=== PATIENT | female | born 1985 | race Hispanic/Latino ===

== ENCOUNTER 2016-07-21 22:27 | Emergency (ER) | payer OTHER ==
[~2016-07-21] VITALS: Ht 165.1 cm; Wt 78.6 kg
[~2016-07-21 22:27] MED LIST: LEDI1TAB PO; POLY17PO6 PO
[2016-07-21 22:29] VITALS: BP 122/71; PULSE 86; RESP 16; O2SAT 98
--- NOTE | 2016-07-21 23:56 | ED.REPORT ---
HPI-General Illness Date of Service Jul 21, 2016 ED Provider: Viktor Nava MD A 31 year old female with a history of cholelithiasis and hepatitis C presents to the ED complaining of abdominal pain that began approximately three hours ago and has been worsening since. This pain is most severe in the midline, but is present across her entire abdomen and radiates into her back. This is accompanied by nausea and vomiting. The pt believes that this is related to her gallbladder. She was diagnosed with two gallstones one month ago and has surgery scheduled for 08/02/2016, but did not feel that she could wait this long to be seen. The pt's last meal was a [employer] sandwich. Nursing Notes Stated Complaint: BACK PAIN Chief Complaint: Female Abdominal Pain Nursing Notes Reviewed: Yes Allergies: Coded Allergies: No Known Allergies (Verified , 04/19/14) Scheduled Ledipasvir/Sofosbuvir (Harvoni 90-400 mg Tablet) 1 Each Tablet 1 EACH PO DAILY Omeprazole (Omeprazole) 20 Mg Capsule.dr 20 MG PO BID Polyethylene Glycol 3350 (Miralax) 17 Gm Powd.pack 17 GM PO DAILY Scheduled PRN Ondansetron (Ondansetron) 8 Mg Tablet 8 MG PO QID PRN PRN For Nausea General Time Seen by MD: 23:32 Chief Complaint Abdominal pain Hx Obtained From: Patient Arrived By: Walk-in Sudden in Onset?: No Onset Occurred: 1 - 4 hours ago Symptom Duration: Since onset Recent Healthcare: No recent hospitalization, Recent doctor visit Similar Sx Previous: No Past Medical History Past Medical History hepatitis C gallstones kidney stones chronic back pain depression anxiety jaundice Past Surgical History ectopic stomach biopsy Smoking History Current Every Day Smoker Social History past history of heroin and methamphetamine abuse Alcohol Use: "Social" Ambulatory Status Independent Review of Systems Full Review of Systems Constitutional: Denies: Fever Respiratory: Denies: Non-productive cough, Shortness of breath GI: Reports: Abdominal pain, Nausea, Vomiting Musculoskeletal: Reports: Back pain, Denies: Neck pain Skin: Denies Rash Complete sys rev & neg: except as marked. Physical Exam Vital Signs Vital Signs Date Time Temp Pulse Resp B/P Pulse Ox O2 Delivery O2 Flow Rate FiO2 07/22/16 02:41 75 16 106/62 96 Room Air 07/21/16 22:29 36.3 86 16 122/71 98 Room Air Initial VS: Reviewed General/Constitutional: Awake, Alert, No acute distress Behavior: Positive: Tearful in obvious discomfort Head / Eyes: Atraumatic, Normocephalic, PERRL, EOMI ENT: Atraumatic, Airway patent, Mucous membranes moist Neck: Atraumatic, Supple, Full range of motion Respiratory / Chest: Atraumatic, Breath sounds NL, Breath sounds = bilat, No respiratory distress Cardiovascular: Heart rate NL, Regular rhythm, Heart sounds NL Abdomen: Atraumatic, Soft, Non-tender Back: Atraumatic, Full range of motion Upper Extremities Upper Extremity / MS: Atraumatic, Full range of motion Lower Extremity / Pelvis / MS: Atraumatic, Full range of motion Skin: Atraumatic, Color NL, No rash, Warm, Dry Neurologic: Oriented X3, Speech NL, No motor deficits, No sensory deficits Psychiatric: Affect NL, Mood NL Interpretation & Diagnostics Lab Results Interpretation Result Diagram: 07/22/16 0135 07/22/16 0135 Test 07/21/16 22:58 07/22/16 01:35 Urine Color Yellow (YELLOW) Urine Appearance Cloudy (CLEAR,HAZY) Urine pH 7.0 (5.0-8.0) Urine Specific [place] 1.020 (1.003-1.035) Urine Protein Negativemg/dL (NEG,TRACE) Urine Glucose (UA) Negativemg/dL (NEGATIVE) Urine Ketones Negativemg/dL (NEGATIVE) Urine Occult Blood Negative (NEGATIVE) Urine Nitrite Positive (NEGATIVE) Urine Bilirubin Negative (NEGATIVE) Urine Urobilinogen Normalmg/dL (NORMAL) Urine Leukocyte Esterase Trace (NEGATIVE) Urine RBC 0-2/hpf (0-2) Urine WBC 0-5/hpf (0-5) Urine Epithelial Cells Moderate/hpf (NONE-MOD) Urine Crystals Amorphous urates (NONE Urine Bacteria Moderate/hpf (NONE-FEW) Urine Hyaline Casts None/lpf (NONE) Urine Granular Casts None seen (NONE SEEN) Urine Waxy Casts None seen (NONE SEEN) Urine Red Blood Cell Casts None seen (NONE SEEN) Urine White Blood Cell Casts None seen (NONE SEEN) Urine Mucus None seen (None Seen) Urine Trichomonas None seen (NONE SEEN) Urine Yeast None (NONE SEEN) Urinalysis Comment None Urine Culture Reflexed Indicated Hold Urine Received (Received) White Blood Count 11.6th/mm3 (3.8-10.1) Red Blood Count 4.47mil/mm3 (3.90-5.20) Hemoglobin 13.3g/dL (12.0-15.6) Hematocrit 38.6% (35.0-46.0) Mean Corpuscular Volume 86.4fL (81-100) Mean Corpuscular Hemoglobin 29.8pg (27.0-35.0) Mean Corpuscular Hemoglobin Concent 34.5% (32.0-37.0) Red Cell Distribution Width 12.3% (12.3-15.4) Platelet Count 208bil/L (150-400) Neutrophils (%) (Auto) 55.2% (40-74) Lymphocytes (%) (Auto) 32.2% (14-46) Monocytes (%) (Auto) 8.4% (4-12) Eosinophils (%) (Auto) 3.6% (0-5) Basophils (%) (Auto) 0.3% (0-3) Prothrombin Time 10.0sec (8.1-12.5) Prothromb Time International Ratio 0.94ratio Sodium Level 142mEq/L (134-144) Potassium Level 4.3mEq/L (3.5-5.2) Chloride Level 109mEq/L (97-108) Carbon Dioxide Level 21mmol/L (18-29) Blood Urea Nitrogen 17mg/dL (6-20) Creatinine 0.52mg/dL (0.57-1.00) Estimat Glomerular Filtration Rate 200mL/min (>59) Glucose Level 113mg/dL (60-99) Calcium Level 8.2mg/dL (8.5-10.1) Magnesium Level 1.7mg/dL (1.6-2.6) Total Bilirubin 0.2mg/dL (0.0-1.2) Aspartate Amino Transf (AST/SGOT) 16U/L (0-50) Alanine Aminotransferase (ALT/SGPT) 17U/L (0-32) Alkaline Phosphatase 79U/L (25-150) Total Protein 6.4g/dL (6.4-8.4) Albumin 3.9g/dL (3.4-5.0) Lipase 42U/L (13-60) Hold Wilkins Top Tube Received (Received) Re-Eval/Medical Decision Med Decision/Clinical Course 31-year-old with known gallstones presents with right upper quadrant pain after eating [employer] sandwich. Pain is resolved at treatment here. LFTs are unremarkable and no evidence of acute biliary obstruction. Imaging deferred for the moment, she is now symptom-free. She needs a cholecystectomy apparently, she has had multiple episodes of colic. Discharged in stable condition for follow-up with surgery as previously arranged. Source of Hx: Old records Time of Eval: :29 Patient Status: Condition improved Re-Evaluation/Progress Note: Pt rechecked, who is resting comfortably. Diagnosis and the plan for discharge are discussed. The pt understands and agrees with the plan. All questions are addressed at this time. Counseled Regarding: Diagnosis, Lab results, Need for follow-up, When/why to return to ED Discharge & Departure Primary Impression: Biliary colic Disposition: Home Discharge Condition All VS Reviewed: Yes Condition: Stable Patient Instructions: Biliary Colic (ED), Low Fat Diet (ED) Additional Instructions: Take Prilosec twice daily. Stick to a low-fat diet. Zofran if needed for nausea. Vicodin if needed for pain. Follow-up with your doctor and schedule your gallbladder operation as soon as possible. Referrals: [facility] Bia Attestation Portions of this note were transcribed by Nahun Lott. I, Dr. Nava personally performed the history, physical exam and medical decision-making; I reviewed and confirmed the accuracy of the information in the transcribed note. Signed by: Bia Montes, 07/22/2016 and 0238. copies to: [facility] Viktor Nava MD Jul 21, 2016 23:56 NAHUN LOTT Jul 22, 2016 00:04
[2016-07-21] MEDS ORDERED: 0.9% Sodium Chloride 1,000 ML IV ONE (23:59)
[2016-07-22] MEDS ORDERED: Pantoprazole 4 mg/mL 10 mL Inj IVPUSH ONE
[2016-07-22] MEDS ORDERED: Ondansetron 2 mg/mL 2 mL Inj IVPUSH ONE
[2016-07-22 00:13] LABS: APPEARANCE,URINE CLOUDY (CLEAR,HAZY); COLOR,URINE YELLOW (YELLOW); OCCULT BLOOD,URINE NEGATIVE (NEGATIVE); UROBILINOGEN,URINE NORMAL (NORMAL)
[2016-07-22] MEDS: HYDROmorphone 1 mg/mL Inj IVPUSH PRN ×2 (00:18→00:48)
[2016-07-22 01:45] LABS: BASOPHILS % (AUTO) 0.3 % (0-3); EOSINOPHILS % (AUTO) 3.6 % (0-5); MONOCYTES % (AUTO) 8.4 % (4-12); Mean Corpuscular Hemoglobin 29.8 pg (27.0-35.0); Mean Corpuscular Volume 86.4 fL (81-100); NEUTROPHILS % (AUTO) 55.2 % (40-74); Platelet Count 208 bil/L (150-400)
[2016-07-22 02:12] LABS: INR 0.94 ratio
[2016-07-22 02:16] LABS: Magnesium 1.7 mg/dL (1.6-2.6)
[2016-07-22] MEDS ORDERED: _HYDROcodone/APAP 5-325 mg Tablet PO PRN (02:30)
[2016-07-22] MEDS ORDERED: ONDA-54 PO (02:33)
[2016-07-22] MEDS ORDERED: OMEP20CA11 PO (02:33)
[2016-07-22 02:41] VITALS: BP 106/62; PULSE 75; RESP 16; O2SAT 96
[2016-07-28] MEDS ORDERED: NPR500T PO (11:43)
== END 2016-07-22 02:56 | disposition home or self-care (01) ==
LOC: SED 22:27
DX: K80.50 Calculus of bile duct without cholangitis or cholecystitis without obstruction (principal); F17.200 Nicotine dependence, unspecified, uncomplicated
CPT/HCPCS: 36415; 80053; 81000; 83690; 83735; 85025; 85610; 87086; 87088; 96361; 96374; 96375; 99285; J1170; J1885; J2405; J7030

== ENCOUNTER 2016-08-02 11:42 | Day surgery (SDC) | payer OTHER ==
[2016-08-02] VITALS (14 sets, daily range): BP systolic 100–124; BP diastolic 32–86; PULSE 57–90; RESP 14–16; O2SAT 92–100
[~2016-08-02] VITALS: Ht 165.1 cm; Wt 82.0 kg
[~2016-08-02 11:42] MED LIST changes: +CeFAZolin Inj 2 GM in IV Premix 1 EACH IV ONE; +CeFAZolin Inj 2 GM in IV Premix 1 EACH IV SCH; -LEDI1TAB PO; +Lactated Ringer's 1,000 ML IV SCH; +NPR500T PO
[2016-08-02] MEDS ORDERED: Neostigmine 1 mg/mL 10 mL Inj ONE (11:43)
[2016-08-02] MEDS ORDERED: Rocuronium 10 mg/mL 5 mL Inj ONE (11:43)
[2016-08-02] MEDS ORDERED: fentaNYL-PF 50 mCg/mL 2 mL Inj ONE (11:43)
[2016-08-02] MEDS ORDERED: MetoCLOpramide 5 mg/mL 2 mL Inj ONE (11:43)
[2016-08-02] MEDS ORDERED: Dexamethasone 4 mg/mL Inj ONE (11:43)
[2016-08-02] MEDS ORDERED: EPHEDrine/NS 5 mg/mL 5 mL Syringe ONE (11:43)
[2016-08-02] MEDS ORDERED: Propofol 10,000 mCg/mL 20 mL Inj ONE (11:43)
[2016-08-02] MEDS ORDERED: Glycopyrrolate 0.2 MG/ML 1mL Inj ONE (11:43)
[2016-08-02] MEDS ORDERED: CeFAZolin Inj 2 gm / 50mL D5W IV ONE (11:51)
[2016-08-02] MEDS ORDERED: Lactated Ringer's 1,000 ML IV ONE ×2 (12:05→17:21)
--- NOTE | 2016-08-02 13:36 | PCM.HPANE ---
Patient Data Surgeon Admitting Provider: Attending Provider:Debbi López MD Primary Care Physician:Yoly Other Provider:Precious Shaikh Anesthesia Reason for Visit Biliary Colic Ht/WT & BMI Height (Feet): 5 Height (Inches): 5 Weight (Kilograms): 82 Body Mass Index 30.00 Allergies Coded Allergies: No Known Allergies (Verified , 08/02/16) Past Anesthesia History Anesthesia History: Denies:: Abnormal Airway, Anesthesia Reactions, Difficult Intubation, Fam Anesthesia Reaction, Fam Malignant Hypertherm, Malignant Hyperthermia Diabetes History Hx Diabetes?: No MRSA MRSA: No Medications Hypertension Medication: No Home Meds Incl Beta Reinaldo: No Reported Medications Polyethylene Glycol 3350 (Miralax)17 Gm Powd.pack17 Gm PO DAILY 07/12/16 Discontinued Reported Medications Naproxen 500 Mg Tkg302 Mg PO BID PRN For Pain Ref 0 07/28/16 Ledipasvir/Sofosbuvir (Harvoni 90-400 mg Tablet)1 Each Tablet1 Each PO DAILY 07/12/16 Discontinued Scripts Ondansetron 8 Mg Tablet8 Mg PO QID PRN For Nausea #20 TABLET Prov:Viktor Nava MD 07/22/16 Omeprazole 20 Mg Capsule.dr20 Mg PO BID #60 CAPSULE Ref 0 Prov:Viktor Nava MD 07/22/16 History History of ENT Problems?: No HEENT History: Denies:: Abnormal Airway Difficult Intubation Dysphagia Hearing Problem Sinus Problem TMJ Hx of Heart Problems?: No Cardiovascular History: Positive for:: Rheumatic Fever (hospitalized when teenager) Denies:: AICD Atrial Fibrillation Chest Pain Congestive Heart Failure Hypertension Pacemaker Valvular Heart Disease Other Cardiac History: C/OF BRUISING EASILY Hx of Respiratory Problem?: Yes Respiratory History: Positive for:: Cough (r/t smoking?) Denies:: Asthma COPD Emphysema Hemoptysis Oxygen Administration Pneumonia (unsure of) Tuberculosis Use of C-PAP Machine Use of Inhalers / NEBS Hx Neurologic Problems?: Yes Neurological History: Positive for:: Headaches (for last three years / takes excedrin) Denies:: CVA Multiple Sclerosis Parkinson's Disease Seizures TIA Hx of GI Problems?: Yes Gastrointestinal History: Positive for:: Gall Bladder Disease (BILIARY COLIC= CURRENT PROBLEM) Gastroesphageal Reflux Hepatitis (Hep C - last dose due 07/20/16) Denies:: Cirrhosis Diverticulitis Gastrointestinal Bleeding Hiatal Hernia Rectal Bleeding Other GI Pertinent History: C/OF UNINTENTIONAL WEIGHT LOSS Hx of Problems?: No Genitourinary History: Positive for:: Kidney Stones (passed spontaneously past hx of) Denies:: HX of Hemodialysis Urinary Tract Infection HX of Peritoneal Dialysis: No Female Hx: Denies:: Currently Endometriosis Pelvic Inflammatory Problems with Breasts? Skin History: Denies:: History Skin Disorders? Pressure Ulcers Hx Musculoskeletal Problems?: Yes Musculoskeletal History: Positive for:: Back Injury (chronic back pain, scoliosis "not major") Denies:: Fibromyalgia Joint Replacement Osteoarthritis Rheumatoid Arthritis Hx of Psycho/Social Problems?: Yes Psycho Social History: Positive for:: Anxiety (past hx) Hx Depression (past hx ) Denies:: Bipolar Disorder Suicide Attempt Hx Surgeries?: Yes (ectopic , stomach biopsy) Hx Any Other Health Problems?: Yes Other History: Denies:: Cancer (pre cervical ) Endocrine Disease Hospitalization Thyroid Disease History Blood Transfusions: Positive for:: Accept Blood Products? Denies:: Blood Transfuse Reaction Blood Transfusions Hx Diabetes: No Hx Alcohol Use: NoHx Substance Use: No (remote hx of- last use heroin , methamphetamine 2012) Smoking Status: Current Every Day Smoker Have You Smoked inLast 12 mo: YesApprox How Many Cigarettes/day: 15 C/DAY X 3YRS Stop/Bang S-Snoring: Do You Snore Loudly: No T-Tired: feel tired, fatigued: No O-Obsered: Observed not breath: No P-Blood Pressure: treated: No B- Body Mass Index > 35 kg/m2: No A- Age over 50: No N- Neck Large Circumference: No G- Gender Male: No DOMINIQUE Total Score: 0 DOMINIQUE Risk Assessment: Low Risk, <3 Yes Risk Assessment Category Category 1A: Patient has history of documented sleep apnea, and HAS NOT received any narcotic, sedative or anesthesia administration during this stay. Category 1B: Patient has history of documented sleep apnea, and HAS received any narcotic , sedative or anesthesia administration during this stay Category 2: Patient has SUSPECTED Obstructive Sleep Apnea, and HAS received any narcotic , sedative or anesthesia administration during this stay. Category 3: Patient has SUSPECTED Obstructive Sleep Apnea and HAS NOT received narcotic, sedative or anesthesia administration during this stay. Category 4: Outpatient in Procedural Areas with known sleep apnea or who screen positive for High Risk via the STOP/BANG questionnaire. Exam Exam Vital Signs Vital Signs Date Time Temp Pulse Resp B/P Pulse Ox O2 Delivery O2 Flow Rate FiO2 08/02/16 12:05 36.3 90 16 105/58 97 Room Air General Appearance: Oriented X3 HEENT/AIRWAY: MP 2 Lungs: Normal Air Movement Heart: Regular Rate/Rhythm Meds/Labs/Diagnostics Admission Meds Current Medications Gabapentin (Neurontin) 600 mg PREOP ONCE PO Last administered on 08/02/16 12: 05; Start 08/02/16 at 06:00; Stop 08/02/16 at 06:01; Status DC Celecoxib (CeleBREX) 200 mg PREOP ONCE PO Last administered on 08/02/16 12:05 ; Start 08/02/16 at 06:00; Stop 08/02/16 at 06:01; Status DC Scopolamine (Transderm-Scop Patch) 1.5 mg ONCE ONCE TOPICAL Last administered on 08/02/16 12:05; Start 08/02/16 at 05:00; Stop 08/02/16 at 05:01; Status DC Acetaminophen 650 mg 650 mg PREOP ONCE PO Last administered on 08/02/16 12:05 ; Start 08/02/16 at 06:00; Stop 08/02/16 at 06:01; Status DC Lactated Ringer's (Lr) 1,000 ml @ ud STK-MED ONCE IV Last administered on 08/02 12:05; Start 08/02/16 at 12:05; Stop 08/02/16 at 12:15; Status DC Plan Impression Patient chart reviewed, patient interviewed and anesthestic plan with risks, benefits, and alternatives discussed, and informed consent obtained. NPO Status: 06 ASA Physical Status: ASA2 Mod Systemic Disease Anesthetic Plan: GA Bene/Risks/Altern/Consents: Yes HP Complete Prior to Induction: Yes Jose G Deras MD Aug 02, 2016 13:36
[2016-08-02] MEDS ORDERED: Bupivacaine-MPF 0.5% W/EPI 30 mL Inj INFILTRATE ONE (14:12)
[2016-08-02] MEDS ORDERED: oxyCODONE-Acetamin 5-325 mg Tablet PO PRN (15:35)
--- NOTE | 2016-08-02 15:38 | PCM.ANEP2 ---
Post Anesthesia Evaluation ASA/CMS Post Anesthesia VS in Patient's Normal Range?: Yes Resp Stable; Airway Patent?: Yes CV Function & Hydration Stable: Yes Mental Status Recovered?: Yes Pain control Satisfactory?: Yes N/V Control Satisfactory?: Yes Jose G Deras MD Aug 02, 2016 15:38
--- NOTE | 2016-08-02 15:38 | PCM.ANEP1 ---
Post Anesthesia Phase 1 PACU Phase 1 Assessment Vital Signs Vital Signs Date Time Temp Pulse Resp B/P Pulse Ox O2 Delivery O2 Flow Rate FiO2 08/02/16 15:33 36.0 71 14 112/55 99 Simple Mask 8 08/02/16 12:05 36.3 90 16 105/58 97 Room Air Anesthetic Administered: GA Level of Alertness: Awake, talking Pain: No Nausea or Vomiting: No Airway Device: Oralpharangeal Airway Oxygen Delivery: Room Air Lungs: Normal Air Movement Jose G Deras MD Aug 02, 2016 15:38
--- NOTE | 2016-08-02 15:40 | DRSVH ---
PROCEDURE: X-RAY OPERATIVE CHOLANGIOGRAM ([id number]) INDICATIONS: BILIARY COLIC COMPARISON: [facility] Ultrasound, US, US ABDOMEN, 06/19/2016, 8:42. FINDINGS: Biliary ducts: The surgeon injected contrast into the biliary ducts after cannulation of the cystic duct stump. Visualized intra- and extrahepatic bile ducts are normal in caliber, without strictures. No intraluminal filling defects to suggest retained ductal stones or sludge. No evidence for iatro genic ductal injury. Duodenum: Contrast flows promptly through the sphincter of Oddi into the duodenum, which appears nor mal in caliber. IMPRESSION: Normal exam. Dictated by: Valentin Calderon [facility] Interpreted: Coni Maki MD on 08/02/2016 at 15:30 Transcribed by: ALESHA on 08/02/2016 at 15:31 Approved by: Coni Maki M.D. on 08/02/2016 at 17:35
--- NOTE | 2016-08-02 15:40 | PCM.SURGOP ---
Surgical Operative Report Date of Service: Aug 02, 2016 Pre Operative Diagnosis Biliary colic Post Operative Diagnosis Chronic cholecystitis Procedure: Laparoscopic cholecystectomy with intraoperative cholangiogram, with interpretation Surgeon and Foam Tank Laminator: Surgeon: Debbi López M.D. Assistants: Hugo Yanez PA-C; Laura Bradley, MS3 Surgical assistants were necessary for dissection, retraction, and surgical decision making. Indication for Procedure This is a 31-year-old woman with a history of hepatitis see treated with carvedilol only who presented with postprandial right upper quadrant pain and cholelithiasis noted on abdominal ultrasound. She was diagnosed with biliary colic and was consented for laparoscopic cholecystectomy. Findings: 1. Moderately inflamed gallbladder with overlying adhesions. 2. Normal intraoperative cholangiogram with a long cystic duct, no filling defects, and adequate visualization of the right and left hepatic ducts, common hepatic duct, common bile duct, with good filling of the duodenum. Procedure Details The patient was brought to the operating room and placed in supine position. General endotracheal anesthesia was smoothly induced. A warming blanket and SCDs were placed. A foot board was placed. The operative field was prepped and draped in sterile fashion. A pause was performed to confirm the correct patient, procedure, site, and side. A transverse 10 mm incision was made just below the umbilicus. The abdomen was entered under direct vision using a Logan port. Three additional 5 mm ports were placed in the epigastrium and right upper quadrant. The gallbladder was identified and lifted cephalad. There were moderate adhesions due to cholecystitis, and substantial pericholecystic edema. The duodenum was gently dissected off of the gallbladder. Dissection then proceeded to identify the cystic duct, cystic artery, and to expose the lower one third of the cystic plate. Once there were two and only two structures entering the gallbladder, a clip was placed on the gallbladder side of the cystic duct. A ductotomy was made and a cholangiocatheter was inserted. A cholangiogram was performed and the cystic duct was long and patent with normal filling of the common hepatic duct, common bile duct, and right and left hepatic ducts, as noted above. The cholangiocatheter was then removed, two clips were placed on the cystic duct and it was divided. The cystic artery was clipped on both the gallbladder side and the patient's side and divided. The gallbladder was then removed from its bed on the liver with electrocautery. Prior to completely removing the gallbladder, a final look was taken at the stump of the cystic artery and cystic duct, and there was no bleeding or bile leak. The gallbladder was then fully removed from the liver and placed in an EndoCatch bag and removed. The three 5 mm ports were removed under direct vision, the 10 mm mid abdominal port was removed, and a [id number] PDS was used to close the fascia. There was no fascial defect at the end of the case. 0.5% Marcaine with epinephrine was infused at all port sites for postoperative analgesia. The skin was closed with subcuticular 4-0 Monocryl. Sterile dressings were placed. Sponge, instrument, and needle counts were correct at the end of the procedure. The patient was awakened from general anesthesia and taken to the postoperative care unit in good condition. Complications There were no periprocedural complications identified. Surgical Specimen Removed: Yes Specimen sent to Pathology: Yes Surgical Specimen description: Gallbladder Anesthetic Plan: GA Grafts, Implants: None Output, Estimated Blood Loss: 2 (ml) Blood Administration during celaya: No Debbi López MD Aug 02, 2016 15:40
[2016-08-02] MEDS ORDERED: Lactated Ringer's 500 ML IV PRN ×2 (15:53→15:54)
[2016-08-02] MEDS ORDERED: Lactated Ringer's 1,000 ML IV SCH ×2 (15:53→15:54)
[2016-08-02] MEDS ORDERED: Dexamethasone 4 mg/mL Inj IVPUSH PRN ×2 (15:55)
[2016-08-02] MEDS ORDERED: fentaNYL-PF 50 mCg/mL 2 mL Inj IVPUSH PRN (15:55)
[2016-08-02] MEDS ORDERED: Phenylephrine 10,000 mCg/mL Inj IVPUSH PRN ×2 (15:55)
[2016-08-02] MEDS ORDERED: EPHEDrine Sulfate 50 mg/mL Inj IVPUSH PRN ×2 (15:55)
[2016-08-02] MEDS ORDERED: Ondansetron 2 mg/mL 2 mL Inj IVPUSH PRN ×2 (15:55)
[2016-08-02] MEDS ORDERED: MetoCLOpramide 5 mg/mL 2 mL Inj IVPUSH PRN ×2 (15:55)
[2016-08-02] MEDS ORDERED: HYDROmorphone 1 mg/mL Inj IVPUSH PRN (15:55)
[2016-08-02] MEDS: fentaNYL-PF 50 mCg/mL 2 mL Inj IVPUSH PRN ×2 (16:00→16:17)
[2016-08-02] MEDS: HYDROmorphone 1 mg/mL Inj IVPUSH PRN ×2 (16:00→16:17)
--- NOTE | 2016-08-04 15:33 | PATH ---
SURGICAL PATHOLOGY Attending Physician:Debbi López MD CASE STATUS: Signed Out PATIENT NAME: JEANIE BRO PID: [id number] : 1985 DATE COLLECTED:08/02/2016 00:00 SPECIMEN: Gallbladder CLINICAL HISTORY: BILIARY COLIC 1). GALLBLADDER FINAL DIAGNOSIS: Gallbladder: Cholesterolosis and cholelithiasis. No evidence of malignancy. ICD10 K80.7; K82.4 GROSS DESCRIPTION: The specimen is received in one formalin filled container labeled with the patient's name, sublabeled "gallbladder" and consists of an opened 7.0 x 2.5 x 1.5 CM. The serosa is smooth. The wall is 0.2-0.4 CM in thickness. The mucosa is a light green pena in color. The lumen contains to green rough cobblestone calculi which range in size from 0.5-0.7 CM. 5 life assurance representative sections are submitted in one cassette. 08/03/2016 DAC MICRO DESCRIPTION: Please see diagnosis ICD-9 CODES: CPT CODES: 1: 32986 Electronically Signed Out Nihsa Friend MD [facility] Pathology [facility] [address], [place] [address] Technical component performed at [facility], [address] [place] [address] Ave[address], [place], [address]
== END 2016-08-02 23:59 | disposition home or self-care (01) ==
LOC: SAS 11:42
PROVIDERS: ATTEND Surgery
DX: K80.10 Calculus of gallbladder with chronic cholecystitis without obstruction (principal); R10.9 Unspecified abdominal pain; B18.2 Chronic viral hepatitis C; F17.210 Nicotine dependence, cigarettes, uncomplicated; F41.9 Anxiety disorder, unspecified; F32.9 Major depressive disorder, single episode, unspecified; K21.9 Gastro-esophageal reflux disease without esophagitis; Z87.898 Personal history of other specified conditions; Z87.442 Personal history of urinary calculi
CPT/HCPCS: 47563; 74300; 88304; J0690; J1100; J1170; J2250; J2270; J2710; J2765; J3010; J7120; Q9967

== ENCOUNTER 2016-08-03 19:06 | Observation (INO) | payer OTHER ==
[~2016-08-03] VITALS: Ht 165.1 cm; Wt 80.0 kg
[2016-08-03 11:30] VITALS: BP 106/76; PULSE 58; RESP 18; O2SAT 98
[~2016-08-03 19:06] MED LIST changes: -CeFAZolin Inj 2 GM in IV Premix 1 EACH IV ONE; -CeFAZolin Inj 2 GM in IV Premix 1 EACH IV SCH; -Lactated Ringer's 1,000 ML IV SCH; -NPR500T PO
[2016-08-03 19:13] VITALS: BP 111/69; PULSE 69; RESP 18; O2SAT 98
[2016-08-03] MEDS ORDERED: 0.9% Sodium Chloride 1,000 ML IV ONE (19:34)
[2016-08-03] MEDS ORDERED: HYDROmorphone 0.5 mg/0.5 mL iSecure Syringe IVPUSH PRN ×2 (19:35→22:40)
[2016-08-03] MEDS ORDERED: Ondansetron 2 mg/mL 2 mL Inj IVPUSH PRN ×2 (19:35→22:40)
[2016-08-03 19:50] LABS: BASOPHILS % (AUTO) 0.1 % (0-3); EOSINOPHILS % (AUTO) 0.2 % (0-5); MONOCYTES % (AUTO) 8.9 % (4-12); Mean Corpuscular Hemoglobin 29.7 pg (27.0-35.0); Mean Corpuscular Volume 85.4 fL (81-100); Platelet Count 232 bil/L (150-400)
--- NOTE | 2016-08-03 20:03 | ED.REPORT ---
HPI-Abd Pain F Under 40 Date of Service Aug 03, 2016 ED Provider: Marcos Brannon MD A 31 year old female with a history of hepatitis C, chronic back pain and kidney stones presents to the ED complaining of abdominal pain that began at 0300 this morning. Patient was recently diagnosed with biliary colic on 07/21 and had a successful laparoscopic cholecystectomy performed by Dr. López on . Patient began to express concern when the pain did not subside. She took 5mg of Oxycodone at 1845 this evening with no relief. Patient was unable to sleep because of the pain. Associated symptoms include nausea, vomiting and SOB. She is currently on her menstrual cycle but also reports abnormal bleeding. She denies fever or dysuria. Patient denies BM since the surgery. Nursing Notes Stated Complaint: POST SURGERY ABD PAIN/WHEEZING Chief Complaint: Female Abdominal Pain Nursing Notes Reviewed: Yes Allergies: Coded Allergies: No Known Allergies (Verified , 08/02/16) Scheduled Polyethylene Glycol 3350 (Miralax) 17 Gm Powd.pack 17 GM PO DAILY General Time Seen by MD: 19:27 Chief Complaint Abdominal pain Hx Obtained From: Patient Arrived By: Walk-in Sudden in Onset?: Yes Onset Occurred: 13 - 16 hours ago Symptom Duration: Since onset Progression since Onset: Unchanged Location: : RUQ Quality: Painful Radiation: : Does not radiate Severity: Current: Mild Severity: Maximum: Moderate Associated with: Reports: Nausea, Shortness of breath, Vaginal bleeding, Vomiting, Denies: Dysuria, Fever Pertinent Negative: Pt denies other symptoms Status: Last NL menst cycle (Current) Recent Healthcare: Recent doctor visit, Recent hospitalization Past Medical History Past Medical History Notes: PCP: Butch Zimmer Past Medical History Hepatitis C Gallstones Kidney stones Chronic back pain Depression Anxiety Past Surgical History Ectopic Stomach biopsy Smoking History Current Every Day Smoker Social History Past history of heroin and methamphetamine abuse Alcohol Use: "Social" Drug Use: Meth Other Social History: Good social support, Local resident Ambulatory Status Independent Review of Systems Constitutional: Denies: Chills, Fever Respiratory: Reports: Shortness of breath Cardiovascular: Denies: Chest pain GI: Reports: Abdominal pain, Constipation, Nausea, Vomiting Female: Reports: Vaginal bleeding - abnl, Denies: Dysuria Complete sys rev & neg: except as marked. Neurologic: Denies: Change LOC Physical Exam Initial Vital Signs Vital Signs (First) Date Time Temp Pulse Resp B/P Pulse Ox O2 Delivery O2 Flow Rate FiO2 08/03/16 19:13 36.6 69 18 111/69 98 Room Air Initial VS: Reviewed Head / Eyes: Atraumatic, Normocephalic, PERRL Extremities: Vascular intact, Neuro intact, No swelling, No tenderness Skin: Warm, Dry, No cyanosis Neurologic: Alert, Oriented, Nonfocal Psychiatric: Mood/affect normal, Behavior normal, Normal thought content General/Constitutional: Awake, Alert Respiratory / Chest: Atraumatic, Breath sounds NL, Breath sounds = bilat, No respiratory distress Cardiovascular: Heart rate NL, Regular rhythm, Heart sounds NL, No gallop, No murmurs, No rubs Abdomen: Atraumatic, Soft Tenderness/Guarding/Rebound: Positive: Guarding voluntary, Rebound diffuse, Tender RUQ..., Tender periumbilical Bowel Sounds / Distention: Positive: Bowel sounds absent Back: Atraumatic, Inspection NL Interpretation & Diagnostics Lab Results Interpretation Result Diagram: 08/03/16194408/03/161944 Test 08/03/16 19:45 White Blood Count 14.3th/mm3 (3.8-10.1) Red Blood Count 4.51mil/mm3 (3.90-5.20) Hemoglobin 13.4g/dL (12.0-15.6) Hematocrit 38.5% (35.0-46.0) Mean Corpuscular Volume 85.4fL (81-100) Mean Corpuscular Hemoglobin 29.7pg (27.0-35.0) Mean Corpuscular Hemoglobin Concent 34.8% (32.0-37.0) Red Cell Distribution Width 12.7% (12.3-15.4) Platelet Count 232bil/L (150-400) Neutrophils (%) (Auto) 63.0% (40-74) Lymphocytes (%) (Auto) 27.6% (14-46) Monocytes (%) (Auto) 8.9% (4-12) Eosinophils (%) (Auto) 0.2% (0-5) Basophils (%) (Auto) 0.1% (0-3) Sodium Level 140mEq/L (134-144) Potassium Level 3.5mEq/L (3.5-5.2) Chloride Level 102mEq/L (97-108) Carbon Dioxide Level 23mmol/L (18-29) Blood Urea Nitrogen 9mg/dL (6-20) Creatinine 0.57mg/dL (0.57-1.00) Estimat Glomerular Filtration Rate 180mL/min (>59) Glucose Level 97mg/dL (60-99) Calcium Level 9.3mg/dL (8.5-10.1) Magnesium Level 1.8mg/dL (1.6-2.6) Total Bilirubin 0.5mg/dL (0.0-1.2) Aspartate Amino Transf (AST/SGOT) 35U/L (0-50) Alanine Aminotransferase (ALT/SGPT) 39U/L (0-32) Alkaline Phosphatase 83U/L (25-150) Total Protein 7.7g/dL (6.4-8.4) Albumin 4.3g/dL (3.4-5.0) Lipase 15U/L (13-60) Human Chorionic Gonadotropin, Qual Negative (Negative) Hold Wilkins Top Tube Received (Received) Point of Care Testing: Preg test neg - urine X-Ray Chest Interpretation Chest Xray Interpretation: IMPRESSION: No acute process. Dictated by: Shahbaz Flores M.D. on 08/03/2016 at 21:26 Interpretation / Wet Read by: Interpret - Radiologist CT Abd / Pelvis Interpretation IMPRESSION: 1. Postsurgical sequelae. 2. Mildly thickened and distended fluid-filled small bowel loops within the left hemiabdomen, consistent with gastroenteritis in the appropriate clinical setting. 3. Normal appendix. Dictated by: Shahbaz Folres M.D. on 08/03/2016 at 21:27 Study type: Abdominal CT IV contrast, Abdom CT oral contrast Interpretation / Wet Read by: Interpret - Radiologist Re-Eval/Medical Decision Med Decision/Clinical Course Med Decision/Clinical Course: 31-year-old female status post cholecystectomy yesterday. This was a laparoscopic procedure. Presents today with abdominal pain, she had mild leukocytosis a reassuring imaging. Also had respiratory complaints but no infiltrate on chest x-ray. Was given IV fluids, nausea and pain medication here in the emergency department with continued symptoms. She is admitted to the surgical service, Dr. Santiago will see her later. Re-Evaluation/Progress : Time of Eval: 21:55 Patient Status: Condition improved Re-Evaluation/Progress Note: Patient is rechecked. She is informed of her lab results, CT results and the plan to admit for observation. She agrees to meet with the surgeon in the morning. Consultation #1: Referral / Consult Name: Jose Santiago MD Consulted With: Surgeon Call Returned at: 21:53 Wig Maker: Agrees with eval, Agrees with plan Note: Will consult Consultation #2: Referral / Consult Name: Shani Mathew DO Consulted With: Hospitalist Call Returned at: 22:01 Wig Maker: Will see patient, Agrees with eval, Agrees with plan, Accepts admit Counseled Regarding: Diagnosis, Lab results, Need for admission Discharge & Departure Primary Impression: Postoperative abdominal pain Additional Impression: Ileus Disposition: ADMITTED TO HOSPITAL Discharge Condition All VS Reviewed: Yes Condition: Improved Referrals: BUTCH SHELTON (PCP) Melanieibashley Attestation Portions of this note were transcribed by Chandrakant Ledesma. I, Dr. Brannon personally performed the history, physical exam and medical decision-making; I reviewed and confirmed the accuracy of the information in the transcribed note. Signed by: Bia Hernandez, 08/03/16 [id number]. copies to: BUTCH SHELTON Donald L MD Aug 03, 2016 20:03 CHANDRAKANT LEDESMA Aug 03, 2016 20:10
[2016-08-03 20:12] LABS: Magnesium 1.8 mg/dL (1.6-2.6)
[2016-08-03] MEDS ORDERED: Ketorolac 15 mg/mL Inj IVPUSH ONE (20:30)
--- NOTE | 2016-08-03 21:28 | DRSVH ---
PROCEDURE: X-RAY CHEST ONE VIEW, PORTABLE ([id number]) INDICATIONS: cough TECHNIQUE: One view of the chest was acquired. COMPARISON: [facility], , CHEST 1VW (PORTABLE), 02/10/2011, 16:16. FINDINGS: Surgical changes and devices: None. Lungs and pleura: No pleural effusions or pneumothorax. Lungs are clear. Mediastinum: Mediastinal contours appear normal. Heart size is normal. Bones and chest wall: No suspicious bony lesions. Overlying soft tissues appear unremarkable. IMPRESSION: No acute process. Dictated by: Shahbaz Flores M.D. on 08/03/2016 at 21:26 Approved by: Shahbaz Flores M.D. on 08/03/2016 at 21:26
--- NOTE | 2016-08-03 21:31 | DRSVH ---
PROCEDURE: CT ABDOMEN AND PELVIS WITH CONTRAST ([id number]) INDICATIONS: abd pain post rosalva yesterday TECHNIQUE: After the administration of oral and intravenous contrast, 5 mm thick sections acquired from the diap hragms to the symphysis. 5 mm thick coronal and sagittal reformats were performed. For radiation do se reduction, the following was used: automated exposure control, adjustment of mA and/or kV accordi ng to patient size. COMPARISON: [facility], CT, ABD/PELVIS W/CON (PN), 09/07/2013, 19:38. FINDINGS: Image quality: Excellent. ABDOMEN: Lung bases: Lung bases are clear. Heart size is normal. Solid organs: Liver and spleen are normal in size and enhancement. Gallbladder is surgically absent . There is a small amount of fat stranding within the gallbladder fossa, compatible with postsurgical sequelae. Biliary system is non-dilated. Pancreas enhances normally. No adrenal nodules. Kidneys are normal in size and enhancement, without hydronephrosis. Peritoneum and bowel: Stomach is within normal limits. There are mildly thickened and distended flui d-filled small bowel loops within the left hemiabdomen. Appendix is normal. Colon is within normal li mits. No free fluid. There is a small amount of pneumoperitoneum, compatible with postsurgical sequel ae. Normal appendix. Nodes and vessels: No retroperitoneal or mesenteric adenopathy. Aorta and inferior vena cava are no rmal in caliber. Miscellaneous: No ventral hernias. PELVIS: Genitourinary: Bladder wall thickness is normal. Miscellaneous: No inguinal hernias or adenopathy. Bones: No suspicious bony lesions. No vertebral body compression fractures. IMPRESSION: 1. Postsurgical sequelae. 2. Mildly thickened and distended fluid-filled small bowel loops within the left hemiabdomen, consist ent with gastroenteritis in the appropriate clinical setting. 3. Normal appendix. Dictated by: Shahbaz Flores M.D. on 08/03/2016 at 21:27 Approved by: Shahbaz Flores M.D. on 08/03/2016 at 21:29
[2016-08-03] MEDS ORDERED: HYDROmorphone PCA 0.2 mg/mL 30 mL Inj IV PRN (22:40)
[2016-08-03 23:30] VITALS: BP 106/76; PULSE 58; RESP 17; O2SAT 98
[2016-08-03 23:44] VITALS: BP 112/64; PULSE 84; RESP 16; O2SAT 98
[2016-08-03] MEDS: Lactated Ringer's 1,000 ML IV SCH (23:48)
[2016-08-03 23:53] VITALS: RESP 17; O2SAT 98
--- NOTE | 2016-08-03 23:59 | HP ---
[address] [address] HISTORY AND PHYSICAL PATIENT: JEANIE BRO : 1985 MR#: [id number] ADMIT: 08/03/2016 JOB ID: [id number] DATE: 08/03/2016 CHIEF COMPLAINT: The patient is a 31-year-old female with postop abdominal pain. HISTORY OF PRESENT ILLNESS: The patient underwent a laparoscopic cholecystectomy as an outpatient on August [address] Debbi López. Operative note reports findings some moderately inflamed gallbladder with overlying adhesions and a normal intraoperative cholangiogram with a long cystic duct. No complications were described. The patient tells me that she is having progressively increasing abdominal pain, unrelieved by taking her oral pain medications. She also expresses concern of unusually heavy menstrual bleeding. After discussion over the phone, she was offered a visit to the emergency department where she has been seen by the emergency department physician. Once again, her primary complaint is of pain unrelieved by her oral pain medications. PAST MEDICAL HISTORY: History of hepatitis C, history of chronic back pain, previous kidney stones. MEDICATIONS: 1. Oxycodone. 2. MiraLAX. ALLERGIES: None. SOCIAL HISTORY: The patient is seen with her . Smokes cigarettes. Does not drink alcohol on a daily basis. Distant history of drug use. REVIEW OF SYSTEMS: Negative. PHYSICAL EXAMINATION: The patient is seen in the emergency department. She has received intravenous pain medicine. Her temperature is 36.6, her pulse is 69, her blood pressure is 111/69, per charting. She appears quite uncomfortable with her knees drawn up. Her sclerae are clear. Lungs are clear. Heart sounds are regular. Her incisions are without excessive bleeding or bruising. Palpating her abdomen away from the incisions, she is fairly tender in the right upper quadrant. She has some percussion tenderness and will not cough with my hand on her abdomen. LABORATORY DATA: Her white count is 14.3, compared to 11.6 when she was in the ED previously with biliary colic. Her hematocrit is stable at 38.5. Chemistries are normal. LFTs are normal except for mild elevation of her ALT at 39 and lipase is 15. IMAGING: She has had a CT scan of the abdomen. I have reviewed both the films and the report. There are findings consistent with normal postop appearance, no large fluid collection, no unexpected amount of pneumoperitoneum. IMPRESSION/PLAN: Post laparoscopic cholecystectomy pain, unclear etiology. As she is afebrile with an elevated white count that is consistent with stress, at this point, I would just admit her tonight for pain control. I will ask Dr. López to see her in the morning. I have explained to the patient that we will repeat her labs in the morning and if they look normal, she will likely be discharged. If she is to be discharged tomorrow, she is hoping to be discharged early as she has do shopping for a birthday constitution party for her mother and her nephew. 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
[2016-08-04 00:08] VITALS: RESP 18; O2SAT 96
[2016-08-04 00:20] VITALS: RESP 17; O2SAT 96
--- NOTE | 2016-08-04 04:47 | NUR ---
[place] [facility] [place]ceived phone report from ED at 2315, pt arrived to floor per maximo at 2330, accompanied by ED RN and significant other, pt able to ambulate to bed, a/o able to make needs known, IV access 20g on LAC, vitals taken, wnl, pt c/o abdominal pain, ORTHOPEDIC BRACE [employer]KER started, pt on CPOX,sats high 90's, pt rechecked at 0200,pt asleep no signs of pain, no further complaints, oriented pt to call light system, qhrly checks done, call light in reach.
[2016-08-04 05:19] VITALS: BP 118/81; PULSE 69; RESP 16; O2SAT 96
[2016-08-04 06:19] LABS: BASOPHILS % (AUTO) 0.2 % (0-3); EOSINOPHILS % (AUTO) 1.3 % (0-5); MONOCYTES % (AUTO) 10.8 % (4-12); Mean Corpuscular Hemoglobin 29.6 pg (27.0-35.0); NEUTROPHILS % (AUTO) 47.8 % (40-74); Platelet Count 199 bil/L (150-400)
[2016-08-04 07:50] VITALS: RESP 16; O2SAT 96
[2016-08-04] MEDS: Lactated Ringer's 1,000 ML IV SCH (08:37)
--- NOTE | 2016-08-04 08:42 | PCM.DISURG ---
Surgical Discharge Instruction Date of Service Aug 04, 2016 Dates of Hospitalization Date of Hospital Admission Aug 03, 2016 at 22:35 Providers Admitting Physician: Jose Santiago MD Primary Care Physician: Butch Toledo Attending Physician: Jose Santiago MD Discharge Diagnosis Discharge Diagnosis Postoperative pain after laparoscopic cholecystectomy Post Operative diagnosis Postoperative pain after laparoscopic cholecystectomy Diet Discharge Diet: No restrictions Activity Discharge Activity-General: No lifting >15 pounds for 2 weeks Dressing and Incisional Care Dressing Care: Allow Steri Stripes to fall off Hygiene: May shower Follow Up Plan Follow Up Plan F/U with Dr. López or PA in 2-3 weeks. Debbi López MD Aug 04, 2016 08:42
[2016-08-04] MEDS ORDERED: POLY17PO6 PO (08:44)
[2016-08-04] MEDS ORDERED: ONDA4TAB12 PO (08:44)
[2016-08-04] MEDS ORDERED: ACET-171 PO (08:44)
[2016-08-04] MEDS ORDERED: IBUP-1827 PO (08:44)
[2016-08-04] MEDS ORDERED: OXYC5CAP4 PO (08:44)
--- NOTE | 2016-08-04 08:46 | PCM.PNSURG ---
Subjective Visit Information: Reason for Visit Post Op Abdominal Pain Ileus Surgery/Surgery Date Post-Op Day # Date of Admission: Aug 03, 2016 at 22:35 Hospital Day # Subjective: Stable overnight. WBC normalized. CT shows normal postoperative changes. Pain is improved. Nausea is improved. Objective Vital Sign- Last 8 Hours Date Time Temp Pulse Resp B/P Pulse Ox O2 Delivery O2 Flow Rate FiO2 08/04/16 05:19 16 96 08/04/16 05:19 37.0 69 16 118/81 96 Room Air Intake and Output- Last 8 Hour 08/04/16 Cumulative From/Thru 07:00 08/03/16 19:13 - 08/04/16 05:19 Intake Total 1515 ml 1515 ml Output Total 1000 ml 1000 ml Balance 515 ml 515 ml Intake IV Total 1515 ml 1515 ml Output Urine Total 1000 ml 1000 ml General: Alert, Oriented X3, Cooperative, No Acute Distress Abdomen: Soft, Appropriately tender Result Diagram: 08/04/16 0554 08/04/16 0554 Assessment & Plan Impression 31yof admitted for pain control POD#2 lap cholecystectomy, doing well. Problems: Plan Discharge today with following new medication regimen: tylenol, ibuprofen RTC for pain control oxycodone PRN Miralax PRN constipation Zofran PRN nausea f/u with me in 2-3 weeks. Debbi López MD Aug 04, 2016 08:46
[2016-08-04 10:55] VITALS: BP 109/66; PULSE 72; RESP 16; O2SAT 94
--- NOTE | 2016-08-04 12:50 | NUR ---
Discharge Note Patient given all discharge information and instructions at this time. Patient IV discontinued intact at this time. No questions at this time. Patient removed all belongings from room at this time and was transported to waiting vehicle via wheelchair.
--- NOTE | 2016-08-07 10:51 | PCM.DC.SUR ---
Discharge Summary Date of Service: Date of Hospital Admission: Aug 03, 2016 at 22:35 Date of Discharge: 08/04/2016 Diagnosis at Time of Discharge Primary diagnoses: 1. Postsurgical pain following laparoscopic cholecystectomy 2. Heavy menstrual bleeding Other diagnoses: 1. Hepatitis C 2. Chronic back pain Problems: Brief History and Physical: The patient underwent a laparoscopic cholecystectomy as an outpatient on August [address] Debbi López. Operative note reports findings some moderately inflamed gallbladder with overlying adhesions and a normal intraoperative cholangiogram with a long cystic duct. No complications were described. The patient described that she is having progressively increasing abdominal pain, unrelieved by taking her oral pain medications. She also expresses concern of unusually heavy menstrual bleeding. Consultants: None Hospital Course: The patient was admitted for pain control and overnight observation. By the following morning pain was controlled, white blood cell count had normalized, and the patient was stable for discharge. Pathology: None Disposition: The patient was discharged home on her second hospital day. Follow-up Plan: She will follow-up in the office with either Dr. López for the surgical PA in 2 -3 weeks. Acetaminophen (Acetaminophen) 500 Mg Tablet 1,000 MG PO Q6H PRN PRN philip Ibuprofen (Ibuprofen) 600 Mg Tablet 600 MG PO QID PRN PRN For Pain Ondansetron ODT (Ondansetron ODT) 4 Mg Tab.rapdis 4 MG PO TID PRN PRN For Nausea Polyethylene Glycol 3350 (Miralax) 17 Gm Powd.pack 17 GM PO DAILY PRN PRN For Constipation oxyCODONE (oxyCODONE) 5 Mg Capsule 5-10 MG PO Q4H PRN PRN For Pain Henry Huang PA-C Aug 07, 2016 10:51
== END 2016-08-04 12:55 | disposition home or self-care (01) ==
LOC: SED 19:06 → MOC 22:35
PROVIDERS: ADMIT Surgery; ATTEND Surgery
DX: G89.18 Other acute postprocedural pain (principal); R11.0 Nausea; N92.0 Excessive and frequent menstruation with regular cycle; R05 Cough; G89.29 Other chronic pain; M54.9 Dorsalgia, unspecified; B18.2 Chronic viral hepatitis C; F17.210 Nicotine dependence, cigarettes, uncomplicated
CPT/HCPCS: 36415; 71010; 74177; 80053; 83690; 83735; 84703; 85025; G0378; J1170; J1885; J2405; J7030; J7120; Q9967

== ENCOUNTER 2016-08-17 20:03 | Emergency (ER) | payer OTHER ==
[~2016-08-17] VITALS: Ht 165.1 cm; Wt 82.7 kg
[~2016-08-17 20:03] MED LIST changes: +ACET-171 PO; +IBUP-1827 PO; +ONDA4TAB12 PO; +OXYC5CAP4 PO
[2016-08-17 20:04] VITALS: BP 124/77; PULSE 96; RESP 20; O2SAT 96
[2016-08-17 21:10] LABS: BASOPHILS % (AUTO) 0.3 % (0-3); EOSINOPHILS % (AUTO) 4.2 % (0-5); Mean Corpuscular Hemoglobin 30.3 pg (27.0-35.0); Mean Corpuscular Volume 85.4 fL (81-100); NEUTROPHILS % (AUTO) 59.8 % (40-74); Platelet Count 232 bil/L (150-400)
[2016-08-17 21:30] LABS: Magnesium 1.8 mg/dL (1.6-2.6)
--- NOTE | 2016-08-17 21:52 | ED.REPORT ---
HPI-Abd Pain F Under 42 Date of Service Aug 17, 2016 ED Provider: Dr. Thomson A 31 year old female with ah history of cholelithiasis and nephrolithiasis presents to the ED complaining of pain in right shoulder, right side of back, and in lower abdomen. Pain is exacerbated by breathing. She had cholecystectomy performed on 08/02/2016. Nursing Notes Stated Complaint: PAIN IN RIGHT SHOULDER AND BACK WHEN BREATHING Chief Complaint: Female Abdominal Pain Nursing Notes Reviewed: Yes Allergies: Coded Allergies: No Known Allergies (Verified , 08/02/16) Scheduled PRN Acetaminophen (Acetaminophen) 500 Mg Tablet 1,000 MG PO Q6H PRN PRN philip Ibuprofen (Ibuprofen) 600 Mg Tablet 600 MG PO QID PRN PRN For Pain Ondansetron ODT (Ondansetron ODT) 4 Mg Tab.rapdis 4 MG PO TID PRN PRN For Nausea Polyethylene Glycol 3350 (Miralax) 17 Gm Powd.pack 17 GM PO DAILY PRN PRN For Constipation oxyCODONE (oxyCODONE) 5 Mg Capsule 5-10 MG PO Q4H PRN PRN For Pain General Time Seen by MD: 21:52 Chief Complaint Other (Right shoulder pain) Hx Obtained From: Patient Arrived By: Walk-in Sudden in Onset?: No Onset Occurred: 5 - 8 hours ago Symptom Duration: Since onset Severity: Current: Moderate Severity: Maximum: Moderate Recent Healthcare: Recent doctor visit (Cholecystectomy performed on 08/02/2016) Similar Sx Previous: No Past Medical History Past Medical History Notes: PCP: [facility] Past Medical History Hepatitis C Gallstones Kidney stones Chronic back pain Depression Anxiety Reports: GERD Past Surgical History Ectopic Stomach biopsy Reports: Cholecystectomy Smoking History Current Every Day Smoker Social History Past history of heroin and methamphetamine abuse Alcohol Use: "Social" Drug Use: Meth Other Social History: Good social support, Local resident Ambulatory Status Independent Review of Systems Constitutional: Denies: Chills, Fever Respiratory: Denies: Non-productive cough GI: Reports: Abdominal pain Musculoskeletal: Reports: Back pain (right side of back), Extremity pain ( right shoulder) Complete sys rev & neg: except as marked. Physical Exam Initial Vital Signs Vital Signs (First) Date Time Temp Pulse Resp B/P Pulse Ox O2 Delivery O2 Flow Rate FiO2 08/17/16 20:04 36.2 96 20 124/77 96 Room Air Initial VS: Reviewed General/Constitutional: Awake, Alert Diminished Breath Sounds: Positive: Decreased bilateral Splinting with respiration. Cardiovascular: Heart rate NL, Regular rhythm, Heart sounds NL, No gallop, No murmurs, No rubs Abdomen: Soft, Non-tender (Not at all tender) Back: Atraumatic, Inspection NL Head / Eyes: Atraumatic, Normocephalic, PERRL, EOMI ENT: Atraumatic, Airway patent Skin: Atraumatic, Color NL, Warm, Dry Neurologic: Oriented X3, Speech NL Upper Extremity / MS: No swelling, No edema Interpretation & Diagnostics Lab Results Interpretation Result Diagram: 08/17/16 2106 08/17/16 2106 Test 08/17/16 21:06 08/17/16 22:11 08/18/16 01:10 White Blood Count 15.7th/mm3 (3.8-10.1) Red Blood Count 4.66mil/mm3 (3.90-5.20) Hemoglobin 14.1g/dL (12.0-15.6) Hematocrit 39.8% (35.0-46.0) Mean Corpuscular Volume 85.4fL (81-100) Mean Corpuscular Hemoglobin 30.3pg (27.0-35.0) Mean Corpuscular Hemoglobin Concent 35.4% (32.0-37.0) Red Cell Distribution Width 12.4% (12.3-15.4) Platelet Count 232bil/L (150-400) Neutrophils (%) (Auto) 59.8% (40-74) Lymphocytes (%) (Auto) 27.5% (14-46) Monocytes (%) (Auto) 8.0% (4-12) Eosinophils (%) (Auto) 4.2% (0-5) Basophils (%) (Auto) 0.3% (0-3) D-Dimer 0.94mg/L FEU (<0.50) Sodium Level 140mEq/L (134-144) Potassium Level 4.1mEq/L (3.5-5.2) Chloride Level 105mEq/L (97-108) Carbon Dioxide Level 21mmol/L (18-29) Blood Urea Nitrogen 22mg/dL (6-20) Creatinine 0.62mg/dL (0.57-1.00) Estimat Glomerular Filtration Rate 163mL/min (>59) Glucose Level 69mg/dL (60-99) Calcium Level 9.5mg/dL (8.5-10.1) Magnesium Level 1.8mg/dL (1.6-2.6) Total Bilirubin 0.2mg/dL (0.0-1.2) Aspartate Amino Transf (AST/SGOT) 16U/L (0-50) Alanine Aminotransferase (ALT/SGPT) 15U/L (0-32) Alkaline Phosphatase 89U/L (25-150) Total Protein 7.5g/dL (6.4-8.4) Albumin 4.2g/dL (3.4-5.0) Lipase 41U/L (13-60) HCG Beta Subunit 0.500mIU/mL Hold Wilkins Top Tube Received (Received) Urine Color Yellow (YELLOW) Urine Appearance Hazy (CLEAR,HAZY) Urine pH 6.5 (5.0-8.0) Urine Specific Mona 1.020 (1.003-1.035) Urine Protein Negativemg/dL (NEG,TRACE) Urine Glucose (UA) Negativemg/dL (NEGATIVE) Urine Ketones Tracemg/dL (NEGATIVE) Urine Occult Blood Negative (NEGATIVE) Urine Nitrite Negative (NEGATIVE) Urine Bilirubin Negative (NEGATIVE) Urine Urobilinogen Normalmg/dL (NORMAL) Urine Leukocyte Esterase Negative (NEGATIVE) Urine RBC 0-2/hpf (0-2) Urine WBC 0-5/hpf (0-5) Urine Epithelial Cells Moderate/hpf (NONE-MOD) Urine Crystals Amorphous urates (NONE Urine Bacteria Few/hpf (NONE-FEW) Urine Hyaline Casts None/lpf (NONE) Urine Granular Casts None seen (NONE SEEN) Urine Waxy Casts None seen (NONE SEEN) Urine Red Blood Cell Casts None seen (NONE SEEN) Urine White Blood Cell Casts None seen (NONE SEEN) Urine Mucus Present (None Seen) Urine Trichomonas None seen (NONE SEEN) Urine Yeast None (NONE SEEN) Urinalysis Comment None Urine Culture Reflexed Not indicated Hold Urine Received (Received) Troponin T 0.010ug/L (0.0-0.011) Lab Results Interpretation: CT PULMONARY ANGIOGRAM CONCLUSION: No evidence of pulmonary embolism or dissection. Signed by Sander Cruz M.D. 08/18/2016, 0010. X-Ray Chest Interpretation Chest Xray Interpretation: IMPRESSION: Normal. No pneumothorax. 08/17/2016, 2242. Interpretation / Wet Read by: Wet read ED physician CT Abd / Pelvis Interpretation CONCLUSION: Status post cholecystectomy. 4 cm cystic lesion is noted in the right hemiplevis which may represent a right ovarian or adnexal cyst. 1.4 cm hypodensity in the right ovary which may represent a small collapsing right ovarian cyst. Signed by Sander Capps M.D. 08/18/2016, 0014 Interpretation / Wet Read by: Interpret - Radiologist Re-Eval/Medical Decision Med Decision/Clinical Course Pleuritic right-sided chest pain status post surgery. PE needed be ruled out. This was done so. She is also complaining of abdominal pains scan was extended to her abdomen. An ovarian cyst was identified. No evidence of postcholecystectomy abscess or postsurgical complications. No evidence of pneumothorax or pneumonia either. Her pain was adequately treated. She is understandably frustrated. I am not sure why she is hurting. She will be provided a short course of Percocet for pain and I recommend that she contact her surgeon tomorrow. Source of Hx: Old records Re-Evaluation/Progress : Time of Eval: 02:06 Re-Evaluation/Progress Note: Rechecked patient, explained test results, diagnosis, and plan for discharge. Patient understands and agrees with the plan. All questions addressed. Counseled Regarding: Diagnosis, Lab results, Need for follow-up, When/why to return to ED Discharge & Departure Primary Impression: Pleuritic chest pain Additional Impressions: Postoperative abdominal pain Leukocytosis Leukocytosis type: unspecified Qualified Code: D72.829 - Elevated white blood cell count, unspecified Disposition: Home Discharge Condition All VS Reviewed: Yes Condition: Stable Patient Instructions: Acute Abdominal Pain (ED), Pleurisy (ED) Additional Instructions: The laboratory work demonstrated that you have an elevated white blood cell count. The remainder of the labs are reassuring. The CAT scan of your chest abdomen and pelvis did not show evidence of a pulmonary embolism. There is no signs of an abscess around your liver. You do have a 4 cm cyst in your right pelvis This may well be an ovarian cyst. This needs to be followed up with however I do not feel that it is the cause of your shoulder pain with breathing. I want to call your surgeon as well as the referral sausage maker to set up follow-up. For tonight you may take 1-2 Percocet every 6 hours as needed for severe pain. Do not drive tonight. Do not consume alcohol or acetaminophen while taking the Percocet. Do not hesitate to return if any problems or any worsening symptoms arise. Referrals: [facility] (PCP) Lucia Dick MD, Allison J MD Scribe Attestation Portions of this note were transcribed by Ramesh Merlos. I, Dr. Thomson personally performed the history, physical exam and medical decision-making; I reviewed and confirmed the accuracy of the information in the transcribed note. Signed by: Bia Posada, 08/18/2016, 0240. copies to: Lucia Dick MD; [facility]; Debbi López MD, Todd P DO Aug 17, 2016 21:52 Ramesh Merlos Aug 17, 2016 22:05
[2016-08-17] MEDS ORDERED: HYDROmorphone 0.5 mg/0.5 mL iSecure Syringe IVPUSH PRN (22:25)
[2016-08-18] MEDS ORDERED: Sodium Chloride LOK Flush 10 mL Syringe IVFLUSH SCH (00:30)
[2016-08-18] MEDS ORDERED: _oxyCODONE/APAP 5-325 mg Tablet PO PRN (00:55)
[2016-08-18 01:56] LABS: APPEARANCE,URINE HAZY (CLEAR,HAZY); COLOR,URINE YELLOW (YELLOW); OCCULT BLOOD,URINE NEGATIVE (NEGATIVE); PH,URINE 6.5 (5.0-8.0); UROBILINOGEN,URINE NORMAL (NORMAL)
--- NOTE | 2016-08-18 07:57 | DRSVH ---
PROCEDURE: CT ANGIO CHEST PULMONARY EMBOLISM ([id number]) INDICATIONS: post operative pleuritic chest pain and ruq pain, TECHNIQUE: After the administration of intravenous contrast, 2 mm thick sections acquired from the pulmonary api justen to the posterior costophrenic angles. 3-dimensional maximum intensity projection (MIP) coronal a nd sagittal reformats were then acquired through the thorax. For radiation dose reduction, the follo wing was used: automated exposure control, adjustment of mA and/or kV according to patient size. COMPARISON: [facility], CR, XR CHEST 2VW, 08/17/2016, 22:10. None. FINDINGS: Image quality: Excellent. Pulmonary arteries: Pulmonary arteries are normal in size, and demonstrate no intraluminal filling d efects to suggest central pulmonary embolism. Lungs and pleura: Lungs are clear. No pleural effusions or pneumothorax. Central and peripheral ai rways are patent. Mediastinum: Heart size is normal, without pericardial effusion. No mediastinal or hilar adenopathy . Thoracic aorta is normal in caliber and enhancement. Esophagus is normal in caliber, without hiat al hernia. Bones and chest wall: No suspicious bony lesions. Ribs and thoracic spine appear intact throughout. Thyroid gland is normal. No axillary or supraclavicular adenopathy. Abdomen: Visualized upper abdominal solid organs appear normal in the early arterial phase of enhanc ement. IMPRESSION: No evidence for acute central pulmonary embolism. No significant discrepancy with the operation shift supervisor radiology preliminary report. Dictated by: Coni Maki M.D. on 08/18/2016 at 7:53 Approved by: Coni Maki M.D. on 08/18/2016 at 7:55
--- NOTE | 2016-08-18 08:22 | DRSVH ---
PROCEDURE: CT ABDOMEN AND PELVIS WITH CONTRAST ([id number]) INDICATIONS: Right upper quadrant abdominal pain. Recent cholecystectomy. TECHNIQUE: After the administration of intravenous contrast, 5 mm thick sections acquired from the diaphragm to the symphysis. 5 mm coronal and sagittal reformats were acquired. For radiation dose reduction, the following was used: automated exposure control, adjustment of mA and/or kV according to patient kaur ramirez. COMPARISON: [facility], CT, CT ABD PELVIS W CON, 08/03/2016, 21:02. FINDINGS: Image quality: Excellent. ABDOMEN: Lung bases: Lung bases are clear. Heart size is normal. Solid organs: Liver and spleen are normal in size and enhancement. Gallbladder is surgically remove d. There is subtle stranding in the gallbladder fossa. No fluid collection to suggest abscess. Bilia ry system is non dilated. Pancreas enhances normally. No adrenal nodules. Kidneys demonstrate norm al size and enhancement, without hydronephrosis. Peritoneum and bowel: Bowel loops demonstrate normal wall thickness and caliber. No free fluid or a ir. Nodes and vessels: No retroperitoneal or mesenteric adenopathy by size criteria. Aorta and inferior vena cava are normal in size. Miscellaneous: No ventral hernias. PELVIS: Genitourinary: Bladder wall thickness is normal. There is a 3.8 x 3.0 cm right cyst in the right ad nexa. Miscellaneous: No inguinal hernias or adenopathy. Bones: No suspicious bony lesions. No vertebral body compression fractures. IMPRESSION: 1. Cholecystectomy. Mild stranding is present in the gallbladder fossa. No evidence for postoperative abscess. 2. A 3.8 x 3.0 cm in the right adnexa, most likely ovarian in origin. Recommend pelvic ultrasound fol lowup if clinically indicated. No significant discrepancy with the second shift supervisor radiology preliminary report. Dictated by: Coni Maki M.D. on 08/18/2016 at 8:13 Approved by: Coni Maki M.D. on 08/18/2016 at 8:20
--- NOTE | 2016-08-18 08:31 | DRSVH ---
PROCEDURE: X-RAY CHEST, TWO VIEWS ([id number]) INDICATIONS: pleuritic chest pain TECHNIQUE: 2 views of the chest were acquired. COMPARISON: [facility], CR, XR CHEST 1VW (PORTABLE), 08/03/2016, 20:45. FINDINGS: Surgical changes and devices: None. Lungs and pleura: No pleural effusions or pneumothorax. Lungs are clear. Mediastinum: Mediastinal contours are normal. Heart size is normal. Bones and chest wall: No suspicious bony abnormalities. Soft tissues appear unremarkable. IMPRESSION: No acute cardiopulmonary disease. Dictated by: Valentin Calderon Sandrita Interpreted: Shantell Ortega MD on 08/18/2016 at 8:30 Transcribed by: JAVIER on 08/18/2016 at 8:31 Approved by: Shantell Ortega M.D. on 08/18/2016 at 15:44
== END 2016-08-18 02:27 | disposition home or self-care (01) ==
LOC: SED 20:03
DX: R07.81 Pleurodynia (principal); D72.829 Elevated white blood cell count, unspecified; G89.18 Other acute postprocedural pain; K21.9 Gastro-esophageal reflux disease without esophagitis; F17.200 Nicotine dependence, unspecified, uncomplicated; Z90.49 Acquired absence of other specified parts of digestive tract
CPT/HCPCS: 71020; 71275; 74177; 80053; 81000; 81025; 83690; 83735; 84484; 84702; 85025; 85378; 96374; 99285; J1170; Q9967